=== PATIENT | male | born 1990 | race Caucasian/White ===

== ENCOUNTER 2021-01-27 10:55 | Day surgery (SDC) | payer OTHER, SELFPAY ==
--- NOTE | 2021-01-27 | DI.RAD.S_ITS ---
PROCEDURE: XR ABDOMEN 1V INDICATIONS: RIGHT STENT PLACEMENT TECHNIQUE: 2 intraoperative fluoroscopic views of the abdomen acquired. COMPARISON: None. FINDINGS: Intraoperative fluoroscopic image of abdomen shows right-sided ureteral stent placement. IMPRESSION: Fluoro guidance was provided intraoperatively for right-sided ureteral stent placement. Dictated by: Bnuny Chen M.D. on 01/27/2021 at 17:11 Approved by: Bunny Chen M.D. on 01/27/2021 at 17:12
--- NOTE | 2021-01-27 | DI.RAD.S_ITS ---
PROCEDURE: XR KUB INDICATIONS: Ureteral calculus TECHNIQUE: One view of the abdomen acquired. COMPARISON: [facility], , CT ABDOMEN/PELVIS WITH CONTRAST, 01/23/2021, 14:33. FINDINGS: Surgical changes and devices: None. Bowel: Bowel gas pattern is normal. Soft tissues: 1.2 cm calcification is seen in right upper quadrant abdomen just to the right of L2 vertebral body. Visualized solid organ contours appear normal in size. Bones: No suspicious bony lesions. IMPRESSION: 1.2 cm calcification in the region of right proximal ureter which was also seen on previous CT study. Dictated by: Bunny Chen M.D. on 01/27/2021 at 12:32 Approved by: Bunny Chen M.D. on 01/27/2021 at 12:33
[2021-01-27 12:03] VITALS: BP 116/86; PULSE 73; RESP 14; TEMP 36.8; O2SAT 100; BMI 25.7
[2021-01-27 12:11] LABS: COVID19 -Nasal RAPID Negative (Negative)
[2021-01-27 12:33] VITALS: BMI 25.7
[2021-01-27 12:36] VITALS: BMI 25.7
[2021-01-27] MEDS: LACTATED RINGERS 1,000 ML 42 ML IV (12:37)
--- NOTE | 2021-01-27 15:35 | PM.PREOP ---
Pre-operative Note Interval Note History & Physical reviewed/Exam performed by Physician: Yes Changes to H&P: No
--- NOTE | 2021-01-27 15:36 | P.HP_ITS ---
History of Present Illness History of Present Illness Date Patient Seen: 01/27/21 Time Patient Seen: 15:36 Date of Onset of Symptoms: 01/23/21 Chief complaint: SDC Narrative: Rohith is a 30-year-old white male presenting to preoperative holding have my direction for recent history of a large obstructing right ureteropelvic junction calculus. Rohith has a history of Down syndrome and is a tested. He communicates well through writing. Is experiencing his usual health until on or about 01/23/2021 when he refused his breakfast and was acting differently than usual. His father got a piece of paper in of an for him the express himself, but instead he went and got the car keys and handed him to his father. At which point the presented to [facility] ED were further evaluation blood indications for CT scan. The study demonstrated an obstructing 12 mm x 10 mm right ureteropelvic junction calculus no other calculi were seen no other intra- abdominal pathology noted. I was contacted in reviewed the ED records and imaging on 01/24/2021. He now presents for relief of right upper tract obstruction. Patient History Medical History Diabetes Down's syndrome VSD (ventricular septal defect) Family & Social History Social History: household members family Tobacco & Substance use: Smoking Status Never smoker alcohol intake never Substance Use Type does not use Meds Home Medications and Allergies Home Medications Medication Instructions Recorded Confirmed Type metformin 01/27/21 History Allergies Allergy/AdvReac Type Severity Reaction Status Date / Time No Known Drug Allergies Allergy Verified 01/27/21 11:55 Review of Systems Review of Systems ROS: Yes All systems reviewed with the patient and are negative except as otherwise documented Exam Vital Signs (past 8 hours): - 01/27/21 12:03 Temperature 98.3 F Pulse Rate 73 Respiratory Rate 14 Blood Pressure 116/86 Pulse Oximetry 100 Oxygen Delivery Method Room Air Narrative Exam Narrative: He is a well-developed short statured, well-nourished young white male in no acute distress. Head/neck-sclera clear an pupils are equal round bilaterally. No visible adenopathy or JVD. Chest-equal, clear, and unlabored expansion bilaterally. Heart-regular rate and rhythm. Abdomen bowel tones are normal and active. No palpable hernia or organomegaly. Objective Labs Labs: Laboratory Results - last 24 hr 01/27/21 11:17 SARS-CoV-2 (PCR) Negative Assessment & Plan Assessment and plan (1) Obstruction of right ureteropelvic junction (UPJ) due to stone: Status: Acute (2) Renal colic on right side: Status: Acute Assessment & Plan narrative: Assessment: 1. Obstructing 12 x 10 mm right ureteropelvic junction calculus. 2. Intractable right renal colic. Plan: 1. Discussion and informed consent today for CYSTOSCOPY/PLACEMENT RIGHT URETERAL STENT. 2. Patient will return at next scheduled site visit for right ESWL/possibl cystoscopy and right stent removal.
[2021-01-27] MEDS: CEFAZOLIN 2 GM/100 ML FROZ.PIGGY IV (16:10)
[2021-01-27] MEDS: BELLADONNA/OPIUM SUPPOSITORIES 1 EACH PR (16:47)
--- NOTE | 2021-01-27 16:53 | PM.OP.1 ---
Operative Date/Time/Diagnoses Date of procedure: 01/27/21 Time of procedure: 16:53 Pre-op diagnosis: 1. Obstructing 12 x 10 mm right ureteropelvic junction calculus. 2. Intractable right renal colic. Post-op diagnosis: same Procedure & Clinicians Procedure: 1. Cystoscopy and right ureteropelvic junction calculus manipulation without removal. 2. Cystoscopy placement right ureteral stent. Same procedure as scheduled: Yes Indications: 1. Obstructing 12 x 10 mm right UPJ calculus. 2. Intractable right renal colic. Surgeon: James Gamble Click Yes if Unassisted: Yes Anesthesia Type: General Operative Notes Findings: 1. Urethra-normal caliber without annular stricture or lesion. 2. External sphincter-coapted with normal overlying urothelium. 3. Hmlevfux-6-3.5 cm length with mild lateral lobe hyperplasia. 4. Bladder-normal urothelium throughout. Normal ureteral orifices bilaterally. Following positioning of the right ureteral stent there was a typical postobstructive cloudy efflux witnessed. Closure Type: not applicable Specimen(s): none sent Applied: other (Seven Moroccan by 22-32 cm multi-length ureteral stent) Estimated Blood Loss (mL): 0 Procedure in detail: The patient was positioned supine was administered general anesthesia. The patient was then repositioned in semilithotomy and the lower abdomen, genitalia, groin were then prepped and draped in sterile fashion. The 22 Moroccan panendoscope was then passed lower urinary tract with the findings as described above. A 0.35 hybrid guidewire was then selected advanced through the scope and into the right collecting system under direct and fluoroscopic guidance. Over this a 7 Moroccan by 22-32 cm multi-length stent with selected. This was then advanced over the hybrid guidewire under direct and fluoroscopic guidance as well. NO RETRIEVAL LINE WAS LEFT ATTACHED. Patient was then repositioned in supine, was awakened, and transferred to [facility] for transportation to PACU. Complications: none Post-operative Condition: stable Disposition: PACU Plan for aftercare: Discharge home
[2021-01-27 16:57] VITALS: BP 105/49; PULSE 107; RESP 12; TEMP 36.9; O2SAT 100
--- NOTE | 2021-01-27 17:01 | SUR.OPER ---
Lithotomy on padded OR bed, head on pillow, arms secured on padded arm boards at <90 degrees abduction. Legs secured in padded yellow fins stirrups.
[2021-01-27 17:02] VITALS: BP 109/54; PULSE 93; RESP 16; O2SAT 100
[2021-01-27 17:07] VITALS: BP 117/62; PULSE 100; RESP 14; TEMP 36.8; O2SAT 100
[2021-01-27 17:20] VITALS: BP 105/49; PULSE 105; RESP 16; TEMP 36.9; O2SAT 99
== END 2021-01-27 17:20 | disposition home or self-care (01) ==
PROVIDERS: PCP Family Medicine; Referring Provider Specialist; Visit Provider Specialist
PROC: (CPT 52330; principal; 2021-01-27 12:45)
DX: N20.1 Calculus of ureter (principal); E11.9 Type 2 diabetes mellitus without complications; Z79.84 Long term (current) use of oral hypoglycemic drugs; Q90.9 Down syndrome, unspecified; Q21.0 Ventricular septal defect; Z20.822 Contact with and (suspected) exposure to COVID-19; N40.0 Benign prostatic hyperplasia without lower urinary tract symptoms
CPT/HCPCS: 52330; 52332; 74018; 76000; 87635; J0690; J1100; J2250; J2405; J2704; J3010

== ENCOUNTER → 2021-01-30 11:04 | Outpatient (CLI) | payer OTHER, SELFPAY ==
[2021-01-30 13:26] LABS: COVID19 -Nasal RAPID Negative (Negative)
== END ==
PROVIDERS: PCP Family Medicine; Visit Provider Specialist
DX: Z20.822 Contact with and (suspected) exposure to COVID-19 (principal)
CPT/HCPCS: 87635; C9803

== ENCOUNTER 2021-01-31 07:44 | Day surgery (SDC) | payer OTHER, SELFPAY ==
[2021-01-31] VITALS (9 sets, daily range): BP systolic 86–127; BP diastolic 36–77; PULSE 68–82; RESP 10–16; TEMP 36.4–36.9; O2SAT 97–100; BMI 26.5
--- NOTE | 2021-01-31 08:28 | PM.PREOP ---
Pre-operative Note Interval Note History & Physical reviewed/Exam performed by Physician: Yes Changes to H&P: No H&P completed within 30 days and has changed as indicated here:: In the interval the patient is undergone uncomplicated cystoscopy and placement of right ureteral stent.
[2021-01-31] MEDS: LACTATED RINGERS 500 ML 25 ML IV (08:32)
--- NOTE | 2021-01-31 08:57 | SUR.OPER ---
Addendum entered by Trinh Pappas R.N. 01/31/21 09:16: Pt on ESWL table, bilateral arms at sides on padded gel. Legs uncrossed, heels on gel pad. Warm blankets placed. Original Note: Supine on padded OR bed, head on pillow, arm padded and tucked at side, legs uncrossed, safety belt at thigh, tape over blanket over lower legs .
[2021-01-31] MEDS: ACETAMINOPHEN IV 1,000 MG/100 ML VIAL 400 MG IV (09:00)
--- NOTE | 2021-01-31 09:09 | SUR.OPER ---
Supine on padded OR bed, head on pillow, arms padded and tucked at side, legs uncrossed, safety belt at thigh, tape over blanket over lower legs .
[2021-01-31] MEDS: CEFAZOLIN 1 GM VIAL 2 GM IV (09:25)
--- NOTE | 2021-01-31 09:46 | P.OP_ITS ---
Operative Date/Time/Diagnoses Date of procedure: 01/31/21 Time of procedure: 09:46 Pre-op diagnosis: 1. 14 mm right renal calculus (previously in right UPJ). 2. Retained right ureteral stent. Post-op diagnosis: same Procedure & Clinicians Procedure: 1. Right extra corporal shockwave lithotripsy (maximal power level 7.5 x 2300 shocks). 2. Cystoscopy and right ureteral stent removal. Same procedure as scheduled: Yes Indications: 1. 14 mm right renal calculus. 2. Retained right ureteral stent. Click Yes if Unassisted: Yes Anesthesia Type: General Operative Notes Findings: Index calculus was positioned in the central renal pelvis following manipulation and right stent placement on 01/27/2021. Closure Type: not applicable Specimen(s): none sent Estimated Blood Loss (mL): 0 Blood products transfused: none Procedure in detail: Patient was positioned supine and was administered general anesthesia. The above index calculus was then localized in the X, Y, and Z plane. Lithotripsy was then commenced at minimal power level for total 200 shocks. A 2 minutes pause was then conducted. Lithotripsy was then resumed in the power level gradually increased to maximum of 7.5. The calculus and its fragments were really localize numerous times throughout the case for adjustments in localization as indicated. At 2300 shocks there was excellent radiographic evidence of stone comminution. The patient was then repositioned semi lithotomy and the lower abdomen, groin, and genitalia were prepped and draped in sterile fashion. The 22 Cymro panendoscope was then passed lower urinary tract and advanced proximally. A foreign body grasper was then used to engage the stents and the stent was then removed without incident. The patient was then repositioned in supine, was awakened, and was then transferred to [facility] for transfer to PACU. Complications: none Post-operative Condition: stable Disposition: PACU Plan for aftercare: Discharge home
[2021-01-31] MEDS: FUROSEMIDE 20 MG/2 ML VIAL IV (10:00)
[2021-01-31] MEDS: HYDROCODONE/ACET 5/325 TABLET 1 TAB PO (11:08)
--- NOTE | 2021-01-31 11:26 | SUR.PHASEII ---
Pt up to BR, steady on feet with Dad. Urine strained, stone collected to be sent to the lab. Imer liquids. DC to home with Dad
== END 2021-01-31 11:15 | disposition home or self-care (01) ==
PROVIDERS: PCP Family Medicine; Referring Provider Specialist; Visit Provider Specialist
PROC: (CPT 50590; principal; 2021-01-31 09:15)
DX: N20.0 Calculus of kidney (principal); E11.9 Type 2 diabetes mellitus without complications; Z79.84 Long term (current) use of oral hypoglycemic drugs; Q90.9 Down syndrome, unspecified; Q21.0 Ventricular septal defect
CPT/HCPCS: 50590; J0131; J0690; J1100; J1885; J1940; J2250; J2405; J2704; J3010

== ENCOUNTER 2021-12-22 17:58 | Emergency (ER) | payer OTHER, SELFPAY ==
[2021-12-22] VITALS (10 sets, daily range): BP systolic 92–126; BP diastolic 53–84; PULSE 68–99; RESP 15–24; TEMP 36.6; O2SAT 99–100; BMI 24.1
[2021-12-22 18:38] LABS: Add Manual Diff / Slide Review NO; Basophils Absolute Auto 100 /uL (0-100); Basophils Percent Auto 0.4 % (0-2); Eosinophils Absolute Auto 0 /uL (0-450); Eosinophils Percent Auto 0.1 % (2-4); Hematocrit 45.4 % (41-53); Hemoglobin 15.5 g/dL (13.5-17.5); Lymphocytes Absolute Auto 1400 /uL (1100-4500); Lymphocytes Percent Auto 11.5 % (25-40); Mean Corpuscular HGB Conc 34.2 % (30-36); Mean Corpuscular Hemoglobin 33.5 PG (26-34); Mean Corpuscular Volume 98.1 fL (80-100); Monocytes Absolute Auto 400 /uL (0-900); Monocytes Percent Auto 3.1 % (3-14); Neutrophils Absolute Auto 10700 /uL (1500-7000); Neutrophils Percent Auto 84.9 % (50-75); Platelet Count 235 X10^3/uL (150-400); Red Blood Cell Count 4.62 X10^6/uL (4.5-5.9); Red Cell Distribution Width 13.4 % (11.6-14.8); White Blood Cell Count 12.6 X10^3/uL (4.5-11.0)
[2021-12-22 18:45] LABS: Alanine Aminotransferase 57 IU/L (<50); Albumin 4.4 g/dL (3.5-5.0); Albumin Globulin Ratio 1.3 (1.0-2.8); Alkaline Phosphatase 114 U/L (38-126); Aspartate Aminotransferase 105 IU/L (17-59); BUN Creatinine Ratio 21.2 (6-22); Bilirubin Total 1.1 mg/dL (0.2-1.3); Blood Urea Nitrogen 21 mg/dL (9-20); Calcium 8.8 mg/dL (8.4-10.2); Carbon Dioxide 27 mmol/L (22-32); Chloride 104 mmol/L (98-107); Estimated Glomerular Filt Rate > 60.0 mL/min (>60); Globulin 3.3 g/dL (1.7-4.1); Glucose 160 mg/dL (70-100); HEMOLYSIS 16 (0-50); Lipase 110 U/L (23-300); Potassium 3.9 mmol/L (3.4-5.1); Sodium 141 mmol/L (137-145); Total Protein 7.7 g/dL (6.3-8.2)
--- NOTE | 2021-12-22 18:46 | DI.US.S_ITS ---
PROCEDURE: US ABDOMEN LIMITED INDICATIONS: RIGHT ABDOMINAL PAIN TECHNIQUE: Real-time focused scanning was performed of the abdomen, with image documentation. COMPARISON: [facility], RG, CT ABDOMEN/PELVIS WITH CONTRAST, 01/23/2021, 14:33. FINDINGS: The liver is normal in size without a discrete mass identified. The gallbladder demonstrates numerous internal echogenic shadowing gallstones. No gallbladder wall thickening, pericholecystic fluid, or reported sonographic Lancaster's sign. No intra or extrahepatic biliary ductal dilatation. The common bile duct measures up to 0.4 cm. The pancreas appears unremarkable sonographically where visualized. However, visualization was limited due to bowel gas. The appendix was not discretely visualized in the right lower quadrant. IMPRESSION: 1. Cholelithiasis without evidence of cholecystitis. 2. No biliary ductal dilatation. 3. Appendix not discretely visualized Dictated by: Chan Feliciano M.D. on 12/22/2021 at 20:15 Approved by: Chan Feliciano M.D. on 12/22/2021 at 20:17
--- NOTE | 2021-12-22 19:34 | ED_ITS ---
HPI - Abdominal Pain General Chief Complaint: Abdominal Pain Stated Complaint: ABD PAIN Time Seen by Provider: 12/22/21 19:21 Source: patient Mode of arrival: Ambulatory History of Present Illness HPI narrative: This 31-year-old male has diabetes, Down syndrome and autism. He underwent VSD repair at the age of 4. He communicates minimally with family. He is here with his father. He apparently developed abdominal pain about 4:30 p.m., about 2 hours after having a cheeseburger for lunch. He appears to be pain free at this time. There was no nausea or vomiting. He has no recent URI symptoms, or fever. He does not communicate with me. Regarding my question him about drinking water, he grins and nods, he would like a sip of water. His Dad thinks he is now comfortable. He has no history of GI or problems. Specifically he has no history of stomach problems, gallbladder disease, or kidney problems. Related Data Home Medications Medication Instructions Recorded Confirmed metformin 500 mg PO BID 01/27/21 01/31/21 phenazopyridine 95 mg tablet 95 mg PO QID 01/31/21 01/31/21 Previous Rx's Medication Instructions Recorded oxycodone 5 mg tablet 5 mg PO Q4H PRN #14 tab 01/27/21 tamsulosin 0.4 mg capsule 0.4 mg PO BEDTIME #30 cap 01/27/21 oxycodone 5 mg tablet 5 mg PO Q4H PRN #14 tab 01/31/21 Allergies Allergy/AdvReac Type Severity Reaction Status Date / Time No Known Drug Allergies Allergy Verified 01/27/21 11:55 Review of Systems Review of Systems Narrative: Limited by medical condition as noted in HPI. Patient History Medical History Diabetes Down's syndrome Obstruction of right ureteropelvic junction (UPJ) due to stone VSD (ventricular septal defect) Social History household members: family Smoking Status: Never smoker alcohol intake: never Smoking Status: Never smoker Substance Use Type: does not use Exam Initial Vital Signs Initial Vital Signs: Vital Signs Temperature 97.9 F 12/22/21 18:05 Pulse Rate 68 12/22/21 18:05 Respiratory Rate 22 12/22/21 18:05 Blood Pressure 107/75 12/22/21 18:05 Pulse Oximetry 100 12/22/21 18:05 Const General: cooperative, healthy appearing and other (Minimal communication as noted HPI.) [facility] Head: normocephalic and atraumatic Mouth: oral mucosae normal Eyes General: appearance normal, both eyes and all related structures (No icterus) Resp Effort & Inspection: normal respiratory effort Auscultation: clear to auscultation bilaterally Cardio Rate: regular rate Rhythm: regular rhythm Heart Sounds: S1 normal, S2 normal and normal, physiologic split S2 GI Inspection: normal to inspection Palpation: soft, No mass and No tender Auscultation: normal bowel sounds Back/Spine/Pelvis Back: normal to inspection Skin General: no rashes or lesions noted Neuro General: patient alert and patient awake Other: Cooperative with exam. Extrem General: full ROM, no pedal edema and no calf tenderness Course Orders Ordered: ED Orders 12/22/21 18:21 Complete Blood Count AUTO DIFF Stat Comprehensive Metabolic Panel Stat Lipase Stat 12/22/21 18:26 EKG-12 Lead Stat 12/22/21 18:46 US abdomen limited Stat Vital Signs Vital signs: Vital Signs - 8 hr 12/22/21 18:05 12/22/21 18:20 12/22/21 18:30 Temperature 97.9 F Pulse Rate 68 78 77 Respiratory Rate 22 16 20 Blood Pressure 107/75 Pulse Oximetry 100 99 100 12/22/21 19:00 12/22/21 19:30 Temperature Pulse Rate 79 91 H Respiratory Rate 15 20 Blood Pressure Pulse Oximetry 100 100 MDM - Abdominal Pain Lab Data Result diagrams: 12/22/21 18:21 12/22/21 18:21 Labs: Lab Results 12/22/21 12/22/21 Range/Units 18:21 18:21 WBC 12.6 H (4.5-11.0) X10^3/uL RBC 4.62 (4.5-5.9) X10^6/uL Hgb 15.5 (13.5-17.5) g/dL Hct 45.4 (41-53) % MCV 98.1 (80-100) fL MCH 33.5 (26-34) PG MCHC 34.2 (30-36) % RDW 13.4 (11.6-14.8) % Plt Count 235 (150-400) X10^3/uL Neut % (Auto) 84.9 H (50-75) % Lymph % (Auto) 11.5 L (25-40) % [place] % (Auto) 3.1 (3-14) % Eos % (Auto) 0.1 L (2-4) % Baso % (Auto) 0.4 (0-2) % Neut # (Auto) 52291 H (5858-8464) /uL Lymph # (Auto) 1400 (3734-8661) /uL [place] # (Auto) 400 (0-900) /uL Eos # (Auto) 0 (0-450) /uL Baso # (Auto) 100 (0-100) /uL Sodium 141 (137-145) mmol/L Potassium 3.9 (3.4-5.1) mmol/L Chloride 104 (98-107) mmol/L Carbon Dioxide 27 (22-32) mmol/L BUN 21 H (9-20) mg/dL Creatinine 0.99 (0.66-1.25) mg/dL Estimated GFR > 60.0 (>60) mL/min BUN/Creatinine Ratio 21.2 (6-22) Glucose 160 H (70-100) mg/dL Calcium 8.8 (8.4-10.2) mg/dL Total Bilirubin 1.1 (0.2-1.3) mg/dL AST 105 H (17-59) IU/L ALT 57 H (<50) IU/L Alkaline Phosphatase 114 (38-126) U/L Total Protein 7.7 (6.3-8.2) g/dL Albumin 4.4 (3.5-5.0) g/dL Globulin 3.3 (1.7-4.1) g/dL Albumin/Globulin Ratio 1.3 (1.0-2.8) Lipase 110 (23-300) U/L Imaging Data US - abdomen: Radiologist's Impression: Cholelithiasis without cholecystitis. Discharge Plan Departure Patient Disposition: Home Clinical Impression: Cholelithiasis Instructions: Gallstones Activity Restrictions/Additional Instructions: Adhere to a Low-fat, bland diet. Be sure you are drinking plenty of water. I would suggest follow-up with surgery for further evaluation the gallbladder. I gave you contact information for Dr. Ovalle. Return here for recurrent pain or fever. Prescriptions: No Action phenazopyridine 95 mg Tablet 95 mg PO QID 0RF oxycodone 5 mg tablet 5 mg PO Q4H PRN (Reason: pain) Qty: 14 0RF metformin 500 mg PO BID 0RF tamsulosin 0.4 mg capsule 0.4 mg PO BEDTIME Qty: 30 0RF oxycodone 5 mg tablet 5 mg PO Q4H PRN (Reason: pain) Qty: 14 0RF Referrals: Emanuel Chatterjee MD [Primary Care Provider] - Jessica Ovalle MD [Physician] -
== END 2021-12-22 20:56 | disposition home or self-care (01) ==
PROVIDERS: Emergency Provider Emergency Medicine; PCP Family Medicine
DX: K80.20 Calculus of gallbladder without cholecystitis without obstruction (principal)
CPT/HCPCS: 36415; 76705; 80053; 81003; 83690; 85025; 99283

== ENCOUNTER → 2022-02-03 11:01 | Outpatient (CLI) | payer OTHER, SELFPAY ==
[2022-02-03 11:58] LABS: COVID19 -Nasal RAPID Negative (Negative)
== END ==
PROVIDERS: PCP Family Medicine; Visit Provider Surgery
DX: Z20.822 Contact with and (suspected) exposure to COVID-19 (principal); Z01.812 Encounter for preprocedural laboratory examination
CPT/HCPCS: 87635; C9803

== ENCOUNTER 2022-02-04 10:07 | Day surgery (SDC) | payer OTHER, SELFPAY ==
[2022-02-04] VITALS (11 sets, daily range): BP systolic 102–126; BP diastolic 52–75; PULSE 75–104; RESP 12–16; TEMP 36.4–36.8; O2SAT 93–100; BMI 24.8
--- NOTE | 2022-02-04 | PATH_ITS ---
[facility] Accession Number: [id number] No. of containers..01 Tissue . 01 Material submitted: . gallbladder - GALLBLADDER . 01 Diagnosis: Gallbladder, Cholecystectomy: Chronic cholecystitis, cholesterolosis, and cholelithiasis. MRV 02/09/2022 1127 Local . 01 Electronically signed: . Mery Key MD, Pathologist NPI- [id number] . 01 Gross description: . Received in formalin and labeled with the patient's name and gallbladder and consists of a previously disrupted gallbladder measuring 6.3 x 3.1 x 2.0 cm. The serosa is pink-hardy, smooth and glistening. Two full thickness defects are located on the hepatic surface ranging from 1.4 to 1.5 cm in greatest dimension. The cystic duct is received clamped and measures 0.4 cm in diameter. The cystic duct margin is inked blue and no pericystic lymph node is identified. The specimen is opened to reveal numerous yellow faceted calculi within the lumen and occluding the cystic duct ranging from 0.1 to 0.9 cm in greatest dimension. The mucosa is rendon-brown and focally attenuated by the aforementioned calculi causing flattening. The wall averages 0.2 cm thick. No lesions or polyps are identified. Transmission System Operator sections to include the cystic duct margin and full thickness cross sections are submitted in cassette A1. ([id number]) /[facility] 02/09/2022 1113 Local . 01 Pathologist provided ICD-10: K80.50 . 01 CPT . 720712 Specimen Comment: A courtesy copy of this report has been sent to [phone] Performed at: 01 [facility] [address] [place] [address], [place], [place] [id number] MD Chan Jorge MD Phone: [phone]
[2022-02-04] MEDS: LACTATED RINGERS 1,000 ML 100 ML IV ×2 (10:40→13:16)
--- NOTE | 2022-02-04 13:35 | PM.PREOP ---
Pre-operative Note Interval Note History & Physical reviewed/Exam performed by Physician: Yes Changes to H&P: No
--- NOTE | 2022-02-04 14:03 | PM.OP.1 ---
Operative Date/Time/Diagnoses Date of procedure: 02/04/22 Time of procedure: 14:03 Pre-op diagnosis: Biliary colic Post-op diagnosis: same Procedure & Clinicians Procedure: Laparoscopic cholecystectomy Same procedure as scheduled: Yes Indications: Biliary colic Surgeon: Zacarias Aquino Click Yes if Unassisted: Yes Anesthesia Type: General Operative Notes Findings: Critical view of safety. Specimen(s): other (Gallbladder) Estimated Blood Loss (mL): 10 Procedure in detail: The patient was placed supine on the table and bilateral lower extremity compression devices were applied. Anesthesia was induced they were intubated with an endotracheal tube and received 2g of Ancef. A time-out was performed. They were prepped and draped in sterile fashion. An infraumbilical incision was made, the umbilical stalk was elevated and the fascia was sharply incised entering the abdomen atraumatically. A blunt tip 12mm balloon trocar was then inserted, pneumoperitoneum was established and inspection of the abdomen demonstrated no evidence of injury. They were placed head up and right side up and then a 11 mm port was placed high in the epigastrium and two 5mm in the right upper quadrant. The gallbladder was grasped by the fundus and retracted over the liver and retracted laterally by the infundibulum. There was no evidence of acute cholecystitis. Using Electrocautery the lateral plane between the gallbladder and the liver was opened towards the fundus. The gallbladder was then retracted laterally and the medial plane was developed in the same manner. With the gallbladder mobilized the bottom of the cystic plate was visualized. The hepatocystic triangle was meticulosly skeletonized using of all fat and fibrous tissue from both the front and the back. Only two structures were then clearly seen entering the gallbladder the cystic duct and the cystic artery. With the critical view of safety fully established the cystic duct was clipped twice proximally and once distally using the 10 mm Weck hemoclip applied under direct visualization and then sharply divided. The cystic artery was divided in the same fashion. The gallbladder was removed from the liver bed using electro cautery. The liver bed was then inspected for hemostasis and this was achieved. The abdomen was irrigated with sterile saline and inspection was made that showed the clips in good position. The specimen was removed using Endo-Catch. The abdomen was desufflated. The umbilical fascia was closed with 0 Vicryl in a [id number] fashion under direct visualization. Skin incisions were irrigated and closed with 4-0 Monocryl. 30 ml of 0.25% bupivacaine was infiltrated into the subcutaneous tissue of the incisions. The wounds were sealed with Dermabond. Patient emerged from anesthesia was extubated and transferred to recovery in stable condition. The sponge and instrument count at the end of the operation was correct. Complications: none Post-operative Condition: stable Disposition: same day surgery
[2022-02-04] MEDS: CEFAZOLIN 2 GM/20 ML SYRINGE IV (14:12)
--- NOTE | 2022-02-04 14:23 | SUR.OPER ---
Addendum entered by Nathaly Nichols R.N. 02/04/22 14:24: Directed and approved by Surgeon. Original Note: Supine on padded OR bed, head on pillow, safety belt at thigh, left arm padded and tucked at side. Right arm secured on padded arm board <90 degrees abduction. Legs uncrossed. Padded footboard in place. Tape over blanket to secure lower legs. Tape on lower feet to ensure proper positioning on board. Directed and approved by anesthesia.
[2022-02-04] MEDS: BUPIVACAINE 0.25% (PF) VIAL 30 ML INJ (14:37)
[2022-02-04] MEDS: fentaNYL 100 MCG/2 ML INJ IV ×2 (15:33→15:40)
[2022-02-04] MEDS: OXYCODONE IR 5 MG TABLET PO ×2 (15:35→16:05)
[2022-02-04] MEDS: ACETAMINOPHEN 325 MG TABLET 650 MG PO (15:35)
[2022-02-04] MEDS: HYDROMORPHONE 2 MG INJ IV ×2 (15:47→16:00)
[2022-02-04] MEDS: MEPERIDINE 50 MG/ML INJ 25 MG IV (15:56)
== END 2022-02-04 17:00 | disposition home or self-care (01) ==
PROVIDERS: PCP Family Medicine; Referring Provider Surgery; Visit Provider Surgery
PROC: 0FT44ZZ Resection of Gallbladder, Percutaneous Endoscopic Approach (ICD-10-PCS; CPT 47562; principal; 2022-02-04 11:45)
DX: K80.10 Calculus of gallbladder with chronic cholecystitis without obstruction (principal); E11.9 Type 2 diabetes mellitus without complications; Q90.9 Down syndrome, unspecified; F84.0 Autistic disorder; F80.9 Developmental disorder of speech and language, unspecified; Z79.84 Long term (current) use of oral hypoglycemic drugs
CPT/HCPCS: 47562; 82962; J0690; J1170; J1885; J2175; J2405; J2704; J3010